=== PATIENT | female | born 1965 | race Caucasian/White ===

== ENCOUNTER 2016-12-21 13:01 | Emergency (ER) | payer MEDICARE ==
[2016-12-21 13:13] VITALS: TEMP 97.8
[2016-12-21] MEDS ORDERED: ASPIRIN 81 MG CHEWABLE CTB PO ONE (13:16)
[2016-12-21] MEDS ORDERED: ASPIRIN 81 MG CHEWABLE CTB ONE (13:18)
[2016-12-21] MEDS ORDERED: ALBUTEROL/IPRATROPIUM 1 VIAL SOL ONE (13:18)
[2016-12-21] MEDS ORDERED: ALBUTEROL/IPRATROPIUM 1 VIAL SOL INH ONE (13:20)
[2016-12-21] MEDS ORDERED: KETOROLAC TROMETHAMINE 30 MG/ML SOL IV ONE (13:20)
[2016-12-21 13:26] LABS: BASOPHILS % (AUTO) 1 % (0-3); EOSINOPHILS % (AUTO) 1 % (0-9); HEMATOCRIT 44 % (35-47); MEAN CORPUSCULAR HGB CONC 35.1 gm/dl (32.0-36.0); MEAN CORPUSCULAR VOLUME 91 fL (81-99); MONOCYTES % (AUTO) 5.8 % (0-12); NEUTROPHILS % (AUTO) 64.5 % (37-80)
[2016-12-21] MEDS ORDERED: KETOROLAC TROMETHAMINE 30 MG/ML SOL ONE (13:26)
[2016-12-21 13:38] LABS: ALBUMIN 3.6 gm/dl (3.4-5.0); ALT 17 IU/L (14-63); GLOM FILT RATE 67 mL/min (>60); POTASSIUM 3.2 mMol/L (3.5-5.1); SODIUM 137 mMol/L (136-145)
[2016-12-21 14:17] LABS: APPEARANCE,URINE Slightly Cloudy; BILIRUBIN,URINE NEGATIVE (NEGATIVE); COLOR,URINE Yellow; GLUCOSE, URINE (UA) NEGATIVE (NEGATIVE); KETONES,URINE NEGATIVE (NEGATIVE); LEUKOCYTE ESTERASE ,URINE NEGATIVE (NEGATIVE); NITRATE,URINE NEGATIVE (NEGATIVE); OCCULT BLOOD,URINE TRACE INTACT (NEG-TRACE); PH,URINE 6.5; UROBILINOGEN,URINE 0.2 (0.2-1.0 EU)
[2016-12-21 14:28] LABS: RBC,URINE 0-3 (0-3AV/HPF)
[2016-12-21 14:29] LABS: WBC,URINE 0-1 (0-5AV/HPF)
[2016-12-21 14:47] VITALS: RESP 18
[2016-12-21 15:43] VITALS: BP 151/87; PULSE 85; O2SAT 96
== END 2016-12-21 15:31 | disposition home or self-care (01) | DRG 192 ==
LOC: ED 13:01
DX: J44.9 Chronic obstructive pulmonary disease, unspecified (principal); F41.9 Anxiety disorder, unspecified; R07.89 Other chest pain
CPT/HCPCS: 71020; 80053; 81001; 84484; 85025; 85610; 87804; 93005; 96374; 99284; 99285; J1885; J7620

== ENCOUNTER 2017-11-17 19:45 | Emergency (ER) | payer MEDICARE, OTHER ==
[2017-11-17] MEDS ORDERED: MORPHINE SULFATE 10 MG/ML SOL IV ONE (20:08)
[2017-11-17] MEDS ORDERED: MORPHINE SULFATE 10 MG/ML SOL ONE (20:09)
[2017-11-17 20:45] LABS: BASOPHILS % (AUTO) 1 % (0-3); EOSINOPHILS % (AUTO) 3 % (0-9); HEMATOCRIT 28 % (35-47); MEAN CORPUSCULAR HGB CONC 34.1 gm/dl (32.0-36.0); MEAN CORPUSCULAR VOLUME 96 fL (81-99); MONOCYTES % (AUTO) 6.5 % (0-12); NEUTROPHILS % (AUTO) 73.1 % (37-80)
[2017-11-17] MEDS: SODIUM CHLORIDE 0.9% 1000ML 1,000 ML IV SCH ×3 (20:55→22:17)
[2017-11-17] MEDS ORDERED: HYDROMORPHONE HCL 2 MG/ML SOL IV ONE ×2 (20:57→22:30)
[2017-11-17 21:02] LABS: ALBUMIN 2.9 gm/dl (3.4-5.0); ALT 16 IU/L (14-63); CALCIUM 8.7 mg/dl (8.5-10.1); GLOM FILT RATE 30 mL/min (>60); POTASSIUM 5.5 mMol/L (3.5-5.1); SODIUM 133 mMol/L (136-145)
[2017-11-17] MEDS ORDERED: HYDROMORPHONE 1 MG/ML SYRINGE ONE ×2 (21:07→22:31)
[2017-11-17 22:03] VITALS: TEMP 98.5
[2017-11-17 22:09] VITALS: RESP 20
[2017-11-17] MEDS ORDERED: SODIUM CHLORIDE 0.9% 1000ML 1,000 ML IV SCH (22:30)
[2017-11-17] MEDS ORDERED: HEPARIN SODIUM 5000 U/ML SOL IV ONE (23:19)
[2017-11-17] MEDS ORDERED: HEPARIN PREMIX 25,000 U/250 ML SOL IV PRN (23:20)
[2017-11-17] MEDS ORDERED: HEPARIN SODIUM 5000 U/ML SOL ONE ×2 (23:26)
[2017-11-18] MEDS ORDERED: HYDROMORPHONE HCL 2 MG/ML SOL IV ONE (00:15)
[2017-11-18] MEDS ORDERED: HYDROMORPHONE 1 MG/ML SYRINGE ONE (00:16)
[2017-11-18 00:33] LABS: APPEARANCE,URINE Clear; BILIRUBIN,URINE NEGATIVE (NEGATIVE); COLOR,URINE Yellow; GLUCOSE, URINE (UA) NEGATIVE (NEGATIVE); KETONES,URINE NEGATIVE (NEGATIVE); LEUKOCYTE ESTERASE ,URINE NEGATIVE (NEGATIVE); NITRATE,URINE NEGATIVE (NEGATIVE); OCCULT BLOOD,URINE NEGATIVE (NEG-TRACE); PH,URINE 5.5; UROBILINOGEN,URINE 0.2 (0.2-1.0 EU)
[2017-11-18 00:44] LABS: RBC,URINE NEGATIVE (0-3AV/HPF)
[2017-11-18 00:45] VITALS: BP 119/73; PULSE 83; O2SAT 91
== END 2017-11-18 00:55 | disposition short-term general hospital (02) | DRG 176 ==
LOC: ED 19:45
DX: I26.99 Other pulmonary embolism without acute cor pulmonale (principal); C80.1 Malignant (primary) neoplasm, unspecified; R11.0 Nausea; R06.02 Shortness of breath; K59.00 Constipation, unspecified
CPT/HCPCS: 36415; 71270; 74170; 80053; 81001; 82150; 84484; 85025; 93005; 96365; 96366; 96374; 96375; 99284; 99285; J1644; J2270; Q9967; J1170

== ENCOUNTER 2017-12-08 23:43 | Emergency (ER) | payer MEDICARE, OTHER ==
[2017-12-09 00:10] VITALS: RESP 16; TEMP 97.8
[2017-12-09] MEDS ORDERED: LIDOCAINE 5% PATCH 1 PATCH TDM TOP ONE (00:16)
[2017-12-09] MEDS ORDERED: CYCLOBENZAPRINE 10 MG TAB PO ONE (00:16)
[2017-12-09] MEDS ORDERED: HYDROMORPHONE HCL 2 MG/ML SOL IM ONE (00:16)
[2017-12-09] MEDS ORDERED: HYDROMORPHONE 1 MG/ML SYRINGE ONE (00:18)
[2017-12-09] MEDS ORDERED: CYCLOBENZAPRINE 10 MG TAB ONE (00:18)
[2017-12-09 00:27] VITALS: PULSE 77
[2017-12-09 00:36] VITALS: BP 116/69; O2SAT 96
== END 2017-12-09 00:56 | disposition home or self-care (01) | DRG 313 ==
LOC: ED 23:43
DX: R07.9 Chest pain, unspecified (principal); C34.90 Malignant neoplasm of unspecified part of unspecified bronchus or lung; N19 Unspecified kidney failure; M54.9 Dorsalgia, unspecified; M94.0 Chondrocostal junction syndrome [Tietze]; M62.830 Muscle spasm of back
CPT/HCPCS: 99283; A9270-GY; J1170

== ENCOUNTER 2017-12-12 15:08 | Emergency (ER) | payer MEDICARE, OTHER ==
[2017-12-12 15:16] VITALS: BP 103/67; PULSE 81; RESP 18; TEMP 98.5; O2SAT 98
[2017-12-12] MEDS ORDERED: SODIUM CHLORIDE 0.9% 1000ML 1,000 ML IV ONE (15:45)
[2017-12-12 16:11] LABS: BASOPHILS % (AUTO) 1 % (0-3); EOSINOPHILS % (AUTO) 3 % (0-9); HEMATOCRIT 29 % (35-47); MEAN CORPUSCULAR HGB CONC 33.6 gm/dl (32.0-36.0); MEAN CORPUSCULAR VOLUME 94 fL (81-99); MONOCYTES % (AUTO) 6.4 % (0-12); NEUTROPHILS % (AUTO) 62.8 % (37-80)
[2017-12-12 16:24] LABS: CALCIUM 9.9 mg/dl (8.5-10.1); GLOM FILT RATE 27 mL/min (>60); POTASSIUM 4.8 mMol/L (3.5-5.1); SODIUM 138 mMol/L (136-145)
[2017-12-12] MEDS ORDERED: ACETAMINOPHEN 325 MG PO ONE (17:07)
[2017-12-12] MEDS ORDERED: ACETAMINOPHEN 325 MG ONE (17:10)
== END 2017-12-12 18:10 | disposition home or self-care (01) | DRG 640 ==
LOC: ED 15:08
DX: E86.0 Dehydration (principal); I71.00 Dissection of unspecified site of aorta; Z86.711 Personal history of pulmonary embolism
CPT/HCPCS: 36415; 71045; 80048; 84484; 85025; 93005; 96365; 96366; 99284; 99285

== ENCOUNTER 2018-02-07 13:23 | Emergency (ER) | payer MEDICARE, OTHER ==
[2018-02-07] MEDS ORDERED: HEPARIN PREMIX 25,000 U/250 ML SOL IV SCH (14:15)
[2018-02-07] MEDS ORDERED: HEPARIN SODIUM 5000 U/ML SOL IV ONE ×2 (14:15)
[2018-02-07] MEDS ORDERED: HEPARIN SODIUM 5000 U/ML SOL ONE (14:16)
[2018-02-07] MEDS ORDERED: PIPERACILLIN/TAZOBACT 3.375 GM PDS IV ONE (14:25)
[2018-02-07] MEDS ORDERED: PIPERACILLIN/TAZOBACT 3.375 GM 3.375 GM in SODIUM CHLORIDE 0.9% 100 ML 100 ML IV SCH (14:30)
[2018-02-07 14:41] VITALS: BP 144/82; PULSE 90; RESP 21; TEMP 100.2; O2SAT 95
[2018-02-07 14:43] LABS: ABO O; ANTIBODY SCREEN Negative; RH TYPE Positive
[2018-02-07] MEDS ORDERED: HYDROMORPHONE 1 MG/ML SYRINGE IV PRN (14:49)
[2018-02-07] MEDS ORDERED: HYDROMORPHONE HCL 2 MG/ML SOL ONE (14:50)
== END 2018-02-07 14:58 | disposition short-term general hospital (02) | DRG 189 ==
LOC: ED 13:23
DX: J96.00 Acute respiratory failure, unspecified whether with hypoxia or hypercapnia (principal); R04.2 Hemoptysis; C34.91 Malignant neoplasm of unspecified part of right bronchus or lung
CPT/HCPCS: 36415; 71045; 85610; 85730; 86850; 86900; 86901; 93005; 96365; 99285; J1170; J1644; J2543